=== PATIENT | female | born 2000 | race Caucasian/White ===

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

== ENCOUNTER 2023-11-01 14:37 | Outpatient (CLI) | payer BC | END 2023-11-01 14:38 | disposition home or self-care (01) | LOC: BICULT 14:37 | PROVIDERS: ATTEND Family Medicine | DX: N92.6 Irregular menstruation, unspecified (principal); R10.2 Pelvic and perineal pain; Z87.42 Personal history of other diseases of the female genital tract | CPT/HCPCS: 76856; 93976 ==